=== PATIENT | female | born 1950 | race Caucasian/White ===

== ENCOUNTER 2023-07-12 15:00 | Emergency (ER) | payer MEDICARE ==
[~2023-07-12] VITALS: Ht 175.3 cm; Wt 67.6 kg
[2023-07-12] MEDS ORDERED: KETOROLAC TROMETHAMINE 15 MG/ML VIAL ONE (16:37)
[2023-07-12] MEDS ORDERED: CYCLOBENZAPRINE 10 MG TABLET ONE (16:37)
[2023-07-12] MEDS: KETOROLAC TROMETHAMINE 15 MG/ML VIAL IM ONE (16:45)
[2023-07-12] MEDS: CYCLOBENZAPRINE 10 MG TABLET PO ONE (16:46)
[2023-07-12] MEDS ORDERED: IBUP-1953 PO (18:27)
[2023-07-12] MEDS ORDERED: HYDR-3972 PO (18:27)
[2023-07-12 18:54] VITALS: BP 128/78; TEMP 98.2; O2SAT 98
== END 2023-07-12 18:55 | disposition home or self-care (01) ==
LOC: ER 15:15
DX: S42.292A Other displaced fracture of upper end of left humerus, initial encounter for closed fracture (principal); Z60.2 Problems related to living alone; Z88.1 Allergy status to other antibiotic agents; W18.39XA Other fall on same level, initial encounter; Y93.89 Activity, other specified; Y92.89 Other specified places as the place of occurrence of the external cause; Y99.8 Other external cause status
CPT/HCPCS: 99283; 96372; 73030; J1885

== ENCOUNTER 2024-12-06 16:25 | Emergency (ER) | payer MEDICARE, OTHER ==
[~2024-12-06] VITALS: Ht 175.3 cm; Wt 69.9 kg
[~2024-12-06 16:25] MED LIST: HYDR-3972 PO; IBUP-1953 PO
[2024-12-06] MEDS ORDERED: SULF1TAB48 PO (16:57)
[2024-12-06 17:20] LABS: APPEARANCE,URINE CLEAR (CLEAR); BLOOD, URINE NEGATIVE Ery/uL (NEGATIVE); LEUKOCYTE ESTERASE ,URINE NEGATIVE (NEGATIVE); NITRITE, URINE NEGATIVE (NEGATIVE); UGLUCOSE NEGATIVE (NEGATIVE)
[2024-12-06 17:27] VITALS: BP 124/6; TEMP 98.2; O2SAT 98
== END 2024-12-06 17:28 | disposition home or self-care (01) ==
LOC: ER 16:28
DX: N39.0 Urinary tract infection, site not specified (principal); Z88.0 Allergy status to penicillin; Z88.1 Allergy status to other antibiotic agents; Z60.2 Problems related to living alone; Z79.899 Other long term (current) drug therapy
CPT/HCPCS: 87086-TC